=== PATIENT | male | born 1950 | race Caucasian/White ===

== ENCOUNTER 2018-02-27 14:49 | Day surgery (SDC) | payer MEDICARE ==
[2018-02-27] VITALS (9 sets, daily range): BP systolic 108–131; BP diastolic 65–87
[~2018-02-27] VITALS: Ht 177.8 cm; Wt 76.7 kg
[2018-02-27] MEDS ORDERED: LORazepam 0.5 MG tablet PO PRN (15:45)
[2018-02-27] MEDS ORDERED: LIDOcaine/PRILOcaine 5gm cream TP ONE (15:45)
[2018-02-27] MEDS ORDERED: diphenhydrAMINE 25mg capsule PO PRN (15:45)
[2018-02-27] MEDS ORDERED: normal saline 1000ml 1,000 ML IV SCH (15:45)
[2018-02-27] MEDS ORDERED: OMEG1CAP2 PO (16:03)
[2018-02-27] MEDS ORDERED: MULT-1085 PO (16:03)
[2018-02-27] MEDS ORDERED: nitroGLYCERIN-Tridil 50MG/D5W 250 ML IV ONE (16:23)
[2018-02-27] MEDS ORDERED: verapamil 2.5 mg/ml inj IV ONE (16:23)
[2018-02-27] MEDS ORDERED: iohexol 350MG/ML 100ml bottle IV ONE (16:24)
[2018-02-27] MEDS ORDERED: LIDOcaine 1% (10mg/ml)w/preservative injection 20ml MDV ONE (16:24)
[2018-02-27] MEDS ORDERED: fentaNYL/PF 50MCG/1 ML 2ML syringe ONE (16:24)
[2018-02-27] MEDS ORDERED: heparin 1,000unit/ml 10ml vial 10 ML ONE (16:24)
[2018-02-27] MEDS ORDERED: midazolam 2 mg/2 ml injection ONE (16:24)
[2018-02-27] MEDS ORDERED: proCHLORperazine 10 MG/2 ml inj ONE (17:51)
[2018-02-27] MEDS ORDERED: OXAZEpam 15mg capsule PO PRN (18:45)
[2018-02-27] MEDS ORDERED: HYDROcodone/acetaminophen 10/325mg tab PO PRN (18:45)
[2018-02-27] MEDS ORDERED: proCHLORperazine 10 MG/2 ml inj IV PRN (18:45)
[2018-02-27] MEDS ORDERED: HYDROcodone/acetaminophen 5mg/325mg tablet PO PRN (18:45)
[2018-02-27] MEDS ORDERED: ondansetron/PF 4mg/2ml inj IV PRN (18:45)
== END 2018-02-27 20:35 | disposition home or self-care (01) ==
LOC: SSTAY O 14:49
PROVIDERS: ATTEND Internal Medicine Interventional Cardiology
DX: I25.10 Atherosclerotic heart disease of native coronary artery without angina pectoris (principal); K21.9 Gastro-esophageal reflux disease without esophagitis; Z72.89 Other problems related to lifestyle; Z79.899 Other long term (current) drug therapy; Z98.890 Other specified postprocedural states
CPT/HCPCS: 93005; 93458; 99152; 99153; J0780; J1644; J2001; J2250; J3010; J7030; Q0163; Q9967; A4620; C1769; J3490